=== PATIENT | female | born 1975 | race African-American/Black ===

== ENCOUNTER 2016-12-20 09:05 | Day surgery (SDC) | payer OTHER ==
[~2016-12-20] VITALS: Ht 165.1 cm; Wt 105.6 kg
[~2016-12-20 09:05] MED LIST: PRENATAL TABLE1 EAC3 PO
[2016-12-20 10:05] LABS: MCH 24.3 PG (29.0-34.0); MCHC 31.8 G/DL (30.0-36.0); MCV 76.4 FL (83-99); MEAN PLAT.VOLUME 9.9 uM^3 (9.5-12.4); PLATELET COUNT 289 K/uL (156-360); RBC DIS.WIDTH-CV 24.2 % (11.8-14.6); RBC DIS.WIDTH-SD 65.8 % (39-53); RED BLOOD COUNT 4.32 M/uL (3.80-5.20); WHITE BLOOD COUNT 6.4 K/uL (4.1-10.2)
[2016-12-20 10:07] LABS: EOSINOPHIL (%) 0.9 % (0-5); EOSINOPHIL COUNT 0.1 K/uL (0-0.3); IMMATURE GRANULOCYTE (%) 0.3 % (0.0-0.7); INSTRUMENT ABS NEUTROPHIL CT 4.4 K/uL; LYMPHOCYTE COUNT 1.5 K/uL (1.0-2.8); MONOCYTE COUNT 0.4 K/uL (0-0.8); NEUTROPHIL (%) 68.7 % (45-76); NEUTROPHIL COUNT 4.4 K/uL (1.8-6.4)
[2016-12-20 10:14] LABS: CHLORIDE 107 mEq/L (99-109); POTASSIUM 3.7 mEq/L (3.7-5.4); SODIUM 137 mEq/L (136-147)
[2016-12-20 10:16] LABS: GLUCOSE 107 mg/dL (70-99)
[2016-12-20 10:17] LABS: ANION GAP 10 MEQ/L (2-14)
[2016-12-20 10:19] LABS: GFR ESTIMATE (CALCULATED) > 59 mL/min/
[2016-12-20 10:20] LABS: UREA NITROGEN (BUN) 8 mg/dL (9-23)
[2016-12-20 10:28] LABS: QUANTITATIVE HCG 797.7 MIU/ML
[2016-12-20 10:40] LABS: ADD MIUA? YES; BILIRUBIN NEGATIVE; BLOOD NEGATIVE; COLOR YELLOW ((YELLOW)); GLUCOSE (STRIP) NEGATIVE; KETONES NEGATIVE; LEUKOCYTES NEGATIVE; NITRITE NEGATIVE; PROTEIN (STRIP) NEGATIVE; SPECIFIC GRAVITY 1.018 (1.000-1.030); UROBILINOGEN 0.2 MG/DL (0.2-1.0)
[2016-12-20 10:48] LABS: BACTERIA NONE SEEN /HPF; EPITHELIAL CELLS RARE /HPF; MUCUS TRACE /LPF; RED BLOOD CELLS 0-5 /HPF (0-5); WHITE BLOOD CELLS 0-5 /HPF (0-5)
[2016-12-20] MEDS ORDERED: TUMS500 MG PO (13:52)
[2016-12-20 20:50] VITALS: BP 109/60
[2016-12-21 00:40] VITALS: BP 129/66
[2016-12-21 03:28] VITALS: BP 126/73
[2016-12-21 03:48] VITALS: BP 126/73
[2016-12-21 06:47] LABS: EOSINOPHIL (%) 0.4 % (0-5); HEMATOCRIT 30.7 % (36.0-46.0); IMMATURE GRANULOCYTE (%) 0.4 % (0.0-0.7); INSTRUMENT ABS NEUTROPHIL CT 5.4 K/uL; LYMPHOCYTE COUNT 1.9 K/uL (1.0-2.8); MCH 24.6 PG (29.0-34.0); MCHC 31.9 G/DL (30.0-36.0); MCV 77.1 FL (83-99); MEAN PLAT.VOLUME 9.6 uM^3 (9.5-12.4); MONOCYTE (%) 7.5 % (3-12); MONOCYTE COUNT 0.6 K/uL (0-0.8); NEUTROPHIL (%) 67.8 % (45-76); NEUTROPHIL COUNT 5.4 K/uL (1.8-6.4); PLATELET COUNT 264 K/uL (156-360); RBC DIS.WIDTH-CV 24.3 % (11.8-14.6); RED BLOOD COUNT 3.98 M/uL (3.80-5.20)
[2016-12-21] MEDS ORDERED: PERCOCET 5/31 TABLET PO (08:25)
[2016-12-21] MEDS ORDERED: MOTRIN800 MG PO (08:25)
== END 2016-12-21 09:25 | disposition home or self-care (01) ==
LOC: EME 09:05 → SDC 15:06 → 2SOUTH 19:00 → 2EAST 19:00 → 2SOUTH 19:00 → ENRESERV 19:17 → 2EASTP 20:46 → ENRESERV 12-21 01:28 → 2EAST 12-21 01:36
PROVIDERS: Emergency Medicine; Obstetrics & Gynecology
DX: O00.10 Tubal pregnancy without intrauterine pregnancy (principal); K21.9 Gastro-esophageal reflux disease without esophagitis; N60.19 Diffuse cystic mastopathy of unspecified breast; Z82.49 Family history of ischemic heart disease and other diseases of the circulatory system
CPT/HCPCS: 76801; 80048; 81003; 84702; 85025; 86900; 86901; 88305; 99281; 99285; G0378; J0330; J0690; J1885; J2270; J3010; J7120; S0020

== ENCOUNTER 2017-06-13 20:28 | Emergency (ER) | payer OTHER ==
[~2017-06-13] VITALS: Ht 165.1 cm; Wt 109.9 kg
[~2017-06-13 20:28] MED LIST changes: +MOTRIN800 MG PO; +PERCOCET 5/31 TABLET PO; +TUMS500 MG PO
[2017-06-13 20:52] LABS: BASOPHIL (%) 0.2 % (0-1); EOSINOPHIL COUNT 0.1 K/uL (0-0.3); HEMATOCRIT 35.3 % (36.0-46.0); HEMOGLOBIN 11.9 G/DL (11.9-15.5); IMMATURE GRANULOCYTE (%) 0.3 % (0.0-0.7); LYMPHOCYTE COUNT 2.6 K/uL (1.0-2.8); MCH 29.4 PG (29.0-34.0); MCHC 33.7 G/DL (30.0-36.0); MCV 87.2 FL (83-99); MONOCYTE COUNT 0.7 K/uL (0-0.8); NEUTROPHIL (%) 60.5 % (45-76); NEUTROPHIL COUNT 5.3 K/uL (1.8-6.4); PLATELET COUNT 246 K/uL (156-360); RBC DIS.WIDTH-CV 14.5 % (11.8-14.6); RBC DIS.WIDTH-SD 45.7 % (39-53); RED BLOOD COUNT 4.05 M/uL (3.80-5.20); WHITE BLOOD COUNT 8.8 K/uL (4.1-10.2)
[2017-06-13 21:01] LABS: ALBUMIN 4.4 g/dL (3.2-4.8); CHLORIDE 107 mEq/L (99-109); POTASSIUM 3.9 mEq/L (3.7-5.4); SODIUM 140 mEq/L (136-147)
[2017-06-13 21:04] LABS: GLUCOSE 92 mg/dL (70-99); TOTAL PROTEIN 7.4 g/dL (6.4-8.3)
[2017-06-13 21:06] LABS: TOTAL BILIRUBIN 0.1 mg/dL (0.0-1.0)
[2017-06-13 21:07] LABS: ALKALINE PHOSPHATASE 76 IU/L (3-129); CREATININE 0.8 mg/dL (0.6-1.3); GFR ESTIMATE (CALCULATED) > 59 mL/min/
[2017-06-13 21:08] LABS: UREA NITROGEN (BUN) 10 mg/dL (9-23)
[2017-06-13 21:09] LABS: AST (GOT) 19 IU/L (2-34)
[2017-06-13 21:10] LABS: ALT (GPT) 21 IU/L (3-49)
[2017-06-13 22:54] LABS: TROP-I INTERPRETATION NEGATIVE; TROPONIN-I < 0.01 ng/mL (0.0-0.30)
[2017-06-13] MEDS ORDERED: HYDROCHLOROTHIA25 MG PO (23:07)
[2017-06-13 23:27] VITALS: BP 165/84
== END 2017-06-13 23:28 | disposition home or self-care (01) ==
LOC: EME 20:28
PROVIDERS: Emergency Medicine
DX: I16.0 Hypertensive urgency (principal); I10 Essential (primary) hypertension; K21.9 Gastro-esophageal reflux disease without esophagitis
CPT/HCPCS: 80053; 84484; 85025; 93005; 99281; 99284